=== PATIENT | female | born 1980 | race Caucasian/White ===

== ENCOUNTER 2016-07-23 17:17 | Emergency (ER) | payer OTHER ==
[~2016-07-23] VITALS: Ht 160 cm; Wt 54.5 kg
[2016-07-23] MEDS ORDERED: UNK ANTIDEPRESSANT PO (17:35)
[2016-07-23 17:41] LABS: GLUCOSE,POINT OF CARE 452 MG/DL (70-110)
[2016-07-23 17:56] LABS: BASOPHILS # (AUTO) 0.02 K/uL (0.00-0.20); BASOPHILS % (AUTO) 0.1 % (0.0-2.0); EOSINOPHILS # (AUTO) 0.01 K/uL (0.00-0.70); EOSINOPHILS % (AUTO) 0.09 % (1.0-6.0); HEMATOCRIT 36.5 % (36-46); HEMOGLOBIN 12.6 g/dL (12.0-16.0); LYMPHOCYTES # (AUTO) 2.1 K/uL (1.0-4.8); LYMPHOCYTES % (AUTO) 12.2 % (22.0-44.0); MEAN CORPUSCULAR HGB CONC 34.4 G/dL (31.0-37.0); MEAN CORPUSCULAR VOLUME 90 fL (80-100); MONOCYTES # (AUTO) 0.4 K/uL (0.1-1.0); MONOCYTES % (AUTO) 2.3 % (2.0-9.0); NEUTROPHILS # (AUTO) 14.3 K/uL (1.8-7.7); PLATELET COUNT (AUTO) 187 K/uL (150-450); RED BLOOD CELL COUNT(AUTO) 4.05 MIL/uL (4.00-5.20); RED CELL DISTRIBUTION WIDTH 13.4 % (11.5-14.5); WHITE BLOOD COUNT (AUTO) 16.8 K/uL (4.5-11.0)
[2016-07-23 18:00] LABS: NEUTROPHILS % (AUTO) 85.3 % (40.0-70.0)
[2016-07-23 18:06] LABS: ALANINE AMINOTRANSFERASE 26 U/L (12-78); ALBUMIN 3.5 g/dL (3.4-5.0); ANION GAP 17 mmol/L (8-16); ASPARTATE AMINOTRANSFERASE 19 U/L (15-37); BILIRUBIN,TOTAL 0.2 mg/dL (0.1-1.0); CALCIUM, TOTAL 8.4 mg/dL (8.8-10.5); CARBON DIOXIDE 18 mmol/L (22-29); CHLORIDE 101 mmol/L (98-107); CREATININE 0.67 mg/dL (0.60-1.30); GLOMERULAR FILTR. RATE CALC > 60 mL/min (>60); POTASSIUM 3.6 mmol/L (3.5-5.1); SODIUM SERUM 136 mmol/L (136-145); TOTAL PROTEIN, SERUM 6.9 g/dL (6.4-8.2); UREA NITROGEN, BLOOD 9 mg/dL (7-18)
[2016-07-23] MEDS ORDERED: SODIUM CHLORIDE 0.9% 1,000 ML IV ONE (18:45)
[2016-07-23] MEDS ORDERED: MAGNESIUM SULFATE 2 GM, MVI, ADULT NO.1 WITH VIT K 10 ML, THIAMINE HCL 100 MG, FOLIC AC... IV ONE ×5 (18:45)
[2016-07-23] MEDS ORDERED: INSULIN REGULAR, HUMAN 100 UNITS/ML IVP ONE (18:45)
[2016-07-23 20:02] LABS: APPEARANCE,URINE CLEAR (CLEAR); GLUCOSE, URINE (UA) >=1000 mg/dL (NEGATIVE); KETONES,URINE NEGATIVE (NEGATIVE); LEUKOCYTE ESTERASE ,URINE NEGATIVE (NEGATIVE); OCCULT BLOOD,URINE NEGATIVE (NEGATIVE); PROTEIN,URINE NEGATIVE (NEGATIVE)
[2016-07-23 20:22] LABS: ADD UA MICROSCOPIC YES
[2016-07-23 20:46] LABS: GLUCOSE,POINT OF CARE 126 MG/DL (70-110)
[2016-07-23 21:01] LABS: RBC,URINE None Seen /HPF (0-2); WBC,URINE None Seen /HPF (0-5)
[2016-07-23 21:14] LABS: SALICYLATE 3.4 mg/dL (2.8-20.0)
[2016-07-23 21:24] LABS: ACETAMINOPHEN < 2 mcg/mL (10-30)
[2016-07-23 22:30] VITALS: BP 115/74
== END 2016-07-23 22:46 | disposition home or self-care (01) ==
LOC: EMS 17:19
DX: F10.229 Alcohol dependence with intoxication, unspecified (principal); F32.9 Major depressive disorder, single episode, unspecified; Y90.8 Blood alcohol level of 240 mg/100 ml or more
CPT/HCPCS: 36415; 80053; 80307; 81001; 82962; 85025; 96361; 96365; 96366; 96375; 99285; G0480 ×2; G0481; J1815; J3411; J3475; J3490 ×2; J7030

== ENCOUNTER 2016-08-20 17:13 | Inpatient (IN) | payer OTHER ==
[~2016-08-20] VITALS: Ht 157.5 cm; Wt 58.5 kg
[~2016-08-20 17:13] MED LIST: UNK ANTIDEPRESSANT PO
[2016-08-20] MEDS ORDERED: ESCI10TA PO (17:31)
[2016-08-20] MEDS ORDERED: INSULIN SQ (17:31)
[2016-08-20 17:37] LABS: GLUCOSE,POINT OF CARE 548 MG/DL (70-110)
[2016-08-20] MEDS ORDERED: LORazepam 2 MG/ML VIAL IVP ONE (17:45)
[2016-08-20] MEDS ORDERED: SODIUM CHLORIDE 0.9% 1,000 ML IV ONE ×2 (17:45→19:00)
[2016-08-20] MEDS ORDERED: LORazepam 2 MG/ML VIAL IM ONE (18:00)
[2016-08-20 18:10] LABS: BASOPHILS % (AUTO) 0.4 % (0.0-2.0); EOSINOPHILS % (AUTO) 0.4 % (1.0-6.0); HEMOGLOBIN 14.5 g/dL (12.0-16.0); LYMPHOCYTES # (AUTO) 2.6 K/uL (1.0-4.8); LYMPHOCYTES % (AUTO) 33.7 % (22.0-44.0); MEAN CORPUSCULAR HEMOGLOBIN 30.5 pg (26.0-34.0); MEAN CORPUSCULAR HGB CONC 33.7 G/dL (31.0-37.0); MEAN CORPUSCULAR VOLUME 91 fL (80-100); MONOCYTES # (AUTO) 0.6 K/uL (0.1-1.0); NEUTROPHILS # (AUTO) 4.5 K/uL (1.8-7.7); NEUTROPHILS % (AUTO) 57.5 % (40.0-70.0); PLATELET COUNT (AUTO) 196 K/uL (150-450); RED BLOOD CELL COUNT(AUTO) 4.73 MIL/uL (4.00-5.20); WHITE BLOOD COUNT (AUTO) 7.7 K/uL (4.5-11.0)
[2016-08-20 18:37] LABS: ALANINE AMINOTRANSFERASE 17 U/L (12-78); ALBUMIN 3.8 g/dL (3.4-5.0); ANION GAP 13 mmol/L (8-16); ASPARTATE AMINOTRANSFERASE 14 U/L (15-37); BILIRUBIN,TOTAL 0.1 mg/dL (0.1-1.0); CALCIUM, TOTAL 8.8 mg/dL (8.8-10.5); CARBON DIOXIDE 25 mmol/L (22-29); CHLORIDE 99 mmol/L (98-107); CREATININE 0.83 mg/dL (0.60-1.30); GLOMERULAR FILTR. RATE CALC > 60 mL/min (>60); POTASSIUM 3.3 mmol/L (3.5-5.1); SODIUM SERUM 137 mmol/L (136-145); TOTAL PROTEIN, SERUM 7.8 g/dL (6.4-8.2); UREA NITROGEN, BLOOD 7 mg/dL (7-18)
[2016-08-20] MEDS ORDERED: INSULIN REGULAR, HUMAN 100 UNITS/ML IVP ONE (19:00)
[2016-08-20] MEDS ORDERED: MAGNESIUM HYDROXIDE SUSPENSION 30 ML UDCUP PO PRN (20:15)
[2016-08-20] MEDS ORDERED: POTASSIUM CHL 10 MEQ/WATER 50 ML IV PRN (20:15)
[2016-08-20] MEDS ORDERED: MORPHINE SULFATE 2 MG/ML SYRINGE IVP PRN (20:15)
[2016-08-20] MEDS ORDERED: MAGNESIUM SULFATE 2 GM in DEXTROSE 5%-WATER 50 ML IV PRN (20:15)
[2016-08-20] MEDS ORDERED: SODIUM CHLORIDE 0.9% 1,000 ML IV SCH (20:15)
[2016-08-20] MEDS ORDERED: MAGNESIUM SULFATE 4 GM/WATER 100 ML IV PRN (20:15)
[2016-08-20] MEDS ORDERED: ONDANSETRON HCL 4 MG/2 ML VIAL IVP PRN (20:15)
[2016-08-20] MEDS ORDERED: DEXTROSE 50%-WATER 25 GM/50 ML SYRINGE IVP PRN (20:15)
[2016-08-20] MEDS ORDERED: ACETAMINOPHEN 325 MG TABLET PO PRN (20:15)
[2016-08-20] MEDS ORDERED: POTASSIUM CHLORIDE 20 MEQ ER TABLET PO PRN (20:15)
[2016-08-20] MEDS ORDERED: MAGNESIUM OXIDE 400 MG TABLET PO PRN (20:15)
[2016-08-20] MEDS ORDERED: MAGNESIUM SULFATE 2 GM, MVI, ADULT NO.1 WITH VIT K 10 ML, THIAMINE HCL 100 MG, FOLIC AC... IV ONE ×5 (20:15)
[2016-08-20] MEDS ORDERED: INSULIN ASPART 100 UNITS/ML SQ PRN (20:15)
[2016-08-20] MEDS ORDERED: ALBUTEROL SULFATE 2.5 MG/0.5 ML NEB SOLUTION NEB PRN (20:15)
[2016-08-20] MEDS ORDERED: LORazepam 2 MG/ML VIAL IVP PRN (20:15)
[2016-08-20] MEDS: PANTOPRAZOLE SODIUM 40 MG/VIAL IVP SCH (20:38)
[2016-08-20] MEDS: DOCUSATE SODIUM 100 MG CAPSULE PO SCH (21:00)
[2016-08-20 21:17] LABS: GLUCOSE,POINT OF CARE 49 MG/DL (70-110)
[2016-08-20 22:17] LABS: GLUCOSE,POINT OF CARE 72 MG/DL (70-110)
[2016-08-20 23:00] VITALS: BP 108/62
[2016-08-20] MEDS: DEXTROSE 5%-0.45% SODIUM CHL 1,000 ML IV SCH (23:22)
[2016-08-21 03:57] VITALS: BP 95/52
[2016-08-21 04:13] LABS: ANION GAP 10 mmol/L (8-16); CALCIUM, TOTAL 7.1 mg/dL (8.8-10.5); CARBON DIOXIDE 26 mmol/L (22-29); CHLORIDE 110 mmol/L (98-107); CREATININE 0.44 mg/dL (0.60-1.30); GLOMERULAR FILTR. RATE CALC > 60 mL/min (>60); POTASSIUM 3.6 mmol/L (3.5-5.1); SODIUM SERUM 146 mmol/L (136-145); UREA NITROGEN, BLOOD 3 mg/dL (7-18)
[2016-08-21] MEDS: PANTOPRAZOLE SODIUM 40 MG/VIAL IVP SCH (06:06)
[2016-08-21] MEDS ORDERED: BARIUM SULFATE 0.1% SUSPENSION 450 ML BOTTLE ONE (06:30)
[2016-08-21] MEDS ORDERED: IOVERSOL 320 MG/ML 100 ML VIAL ONE (06:30)
[2016-08-21 07:18] VITALS: BP 91/61
[2016-08-21] MEDS: DOCUSATE SODIUM 100 MG CAPSULE PO SCH (07:38)
[2016-08-21] MEDS: DEXTROSE 5%-0.45% SODIUM CHL 1,000 ML IV SCH (07:56)
[2016-08-21 10:52] VITALS: BP 90/56
[2016-08-21 12:42] LABS: GLUCOSE,POINT OF CARE 91 MG/DL (70-110)
== END 2016-08-21 11:40 | disposition left against medical advice (07) | DRG 439 ==
LOC: EMS 17:14 → 5N 20:55
PROVIDERS: ADMIT Internal Medicine; ATTEND Internal Medicine
DX: K85.20 Alcohol induced acute pancreatitis without necrosis or infection (principal); F10.121 Alcohol abuse with intoxication delirium; F10.159 Alcohol abuse with alcohol-induced psychotic disorder, unspecified; E10.65 Type 1 diabetes mellitus with hyperglycemia; F32.9 Major depressive disorder, single episode, unspecified; Z78.1 Physical restraint status; Z79.4 Long term (current) use of insulin; Z87.891 Personal history of nicotine dependence; Z91.19 Patient's noncompliance with other medical treatment and regimen; Z79.899 Other long term (current) drug therapy; Y90.8 Blood alcohol level of 240 mg/100 ml or more
CPT/HCPCS: 74177; 82962; 83735; 96361; 96365; 96372; 96375; 99285; C9113; G0480; J1815; J2060; J2270; J2405; J3411; J3475; J3480; J3490; J7030

== ENCOUNTER → 2017-12-24 | Emergency (ER) | payer OTHER ==
[~2017-12-24] VITALS: Ht 157.5 cm; Wt 45.5 kg
[~2017-12-24] MED LIST changes: +ESCI10TA PO; +GABA-531 PO; +GLIP5 PO; +INSULIN SQ; +MORPHINE SULFATE 4 MG/ML SYRINGE IVP ONE; +ONDANSETRON HCL 4 MG/2 ML VIAL IVP ONE; +SODIUM CHLORIDE 0.9% 1,000 ML IV ONE
[2017-12-24 08:28] LABS: GLUCOSE,POINT OF CARE 152 MG/DL (70-110)
[2017-12-24 13:15] VITALS: BP 109/76
== END | disposition home or self-care (01) ==
LOC: EMS 08:17
DX: S09.90XA Unspecified injury of head, initial encounter (principal); G44.309 Post-traumatic headache, unspecified, not intractable; F10.20 Alcohol dependence, uncomplicated; E11.9 Type 2 diabetes mellitus without complications; F17.210 Nicotine dependence, cigarettes, uncomplicated; W01.0XXA Fall on same level from slipping, tripping and stumbling without subsequent striking against object, initial encounter; Y93.89 Activity, other specified; Y92.89 Other specified places as the place of occurrence of the external cause; Y99.8 Other external cause status
CPT/HCPCS: 70450; 71250; 72125; 82962; 96361; 96374; 96375; 99285; 99406; J2270; J2405; J7030

== ENCOUNTER 2018-08-06 18:32 | Emergency (ER) | payer OTHER ==
[~2018-08-06] VITALS: Ht 157.5 cm; Wt 44.5 kg
[~2018-08-06 18:32] MED LIST changes: -ESCI10TA PO; -MORPHINE SULFATE 4 MG/ML SYRINGE IVP ONE; -ONDANSETRON HCL 4 MG/2 ML VIAL IVP ONE; -SODIUM CHLORIDE 0.9% 1,000 ML IV ONE; -UNK ANTIDEPRESSANT PO
[2018-08-06 21:33] LABS: GLUCOSE,POINT OF CARE 208 MG/DL (70-110)
[2018-08-06 21:40] VITALS: BP 112/78
== END 2018-08-06 22:25 | disposition home or self-care (01) ==
LOC: EMS 18:33
DX: F10.229 Alcohol dependence with intoxication, unspecified (principal); E11.9 Type 2 diabetes mellitus without complications; F32.9 Major depressive disorder, single episode, unspecified; F17.210 Nicotine dependence, cigarettes, uncomplicated; Z79.84 Long term (current) use of oral hypoglycemic drugs; Y90.7 Blood alcohol level of 200-239 mg/100 ml

== ENCOUNTER 2019-06-20 15:32 | Emergency (ER) | payer SELFPAY ==
[~2019-06-20] VITALS: Ht 157.5 cm; Wt 45.5 kg
[2019-06-20 16:28] VITALS: BP 127/84
[2019-06-20 16:31] LABS: EOSINOPHILS % (AUTO) 1.5 % (1.0-6.0); HEMATOCRIT 41.1 % (36-46); HEMOGLOBIN 13.9 g/dL (12.0-16.0); LYMPHOCYTES # (AUTO) 1.5 K/uL (1.0-4.8); LYMPHOCYTES % (AUTO) 45.6 % (22.0-44.0); MEAN CORPUSCULAR HEMOGLOBIN 31.9 pg (26.0-34.0); MEAN CORPUSCULAR HGB CONC 33.8 G/dL (31.0-37.0); MEAN CORPUSCULAR VOLUME 94 fL (80-100); MONOCYTES # (AUTO) 0.2 K/uL (0.1-1.0); MONOCYTES % (AUTO) 7.3 % (2.0-9.0); NEUTROPHILS # (AUTO) 1.4 K/uL (1.8-7.7); NEUTROPHILS % (AUTO) 44.6 % (40.0-70.0); PLATELET COUNT (AUTO) 139 K/uL (150-450); RED BLOOD CELL COUNT(AUTO) 4.36 MIL/uL (4.00-5.20); RED CELL DISTRIBUTION WIDTH 14.2 % (11.5-14.5)
[2019-06-20 16:38] LABS: GLUCOSE,POINT OF CARE 131 MG/DL (70-110)
[2019-06-20] MEDS ORDERED: PROZ10 PO (16:42)
[2019-06-20 16:50] LABS: ANION GAP 11 mmol/L (8-16); CALCIUM, TOTAL 8.6 mg/dL (8.8-10.5); CARBON DIOXIDE 30 mmol/L (22-29); CHLORIDE 106 mmol/L (98-107); CREATININE 0.48 mg/dL (0.60-1.30); GLOMERULAR FILTR. RATE CALC > 60 mL/min (>60); GLUCOSE,RANDOM 138 mg/dL (70-110); POTASSIUM 3.6 mmol/L (3.5-5.1); SODIUM SERUM 147 mmol/L (136-145)
[2019-06-20 17:01] LABS: ALANINE AMINOTRANSFERASE 27 U/L (12-78); ALKALINE PHOSPHATASE 68 U/L (46-116); ASPARTATE AMINOTRANSFERASE 40 U/L (15-37); BILIRUBIN,TOTAL 0.2 mg/dL (0.1-1.0); HCG,QUANTITATIVE < 1 mIU/mL (0-6); TOTAL PROTEIN, SERUM 7.9 g/dL (6.4-8.2); UREA NITROGEN, BLOOD 9 mg/dL (7-18)
[2019-06-20 17:10] LABS: GLUCOSE,POINT OF CARE 125 MG/DL (70-110)
== END 2019-06-20 17:30 | disposition home or self-care (01) ==
LOC: EMS 15:34
DX: F10.229 Alcohol dependence with intoxication, unspecified (principal); E11.9 Type 2 diabetes mellitus without complications; Z79.84 Long term (current) use of oral hypoglycemic drugs; Z79.4 Long term (current) use of insulin; Z79.899 Other long term (current) drug therapy
CPT/HCPCS: 82948